=== PATIENT | male | born 1980 | race Two or more races ===

== ENCOUNTER 2017-09-23 00:30 | Emergency (ER) | payer SELFPAY ==
[~2017-09-23] VITALS: Ht 190.5 cm; Wt 106.6 kg
[2017-09-23 04:25] VITALS: BP 137/82
== END 2017-09-23 04:59 ==
LOC: ER 00:32
DX: S50.11XA Contusion of right forearm, initial encounter (principal); Y08.89XA Assault by other specified means, initial encounter; Y93.89 Activity, other specified; Y99.8 Other external cause status; Y92.89 Other specified places as the place of occurrence of the external cause
CPT/HCPCS: 73090; 93005